=== PATIENT | male | born 1985 | race Caucasian/White ===

== ENCOUNTER 2017-10-11 18:26 | Emergency (ER) | payer OTHER ==
[~2017-10-11] VITALS: Ht 152.4 cm; Wt 57.2 kg
[~2017-10-11 18:26] MED LIST: A-CILLIN250 MG; AUGMENTIN 875875 MG PO; KEFLEX500 MG PO; LORATADINE; NKHM; PERCOCET 325 MG1 TA7 PO; VICODIN 5/500 505 MG PO
[2017-10-11] MEDS ORDERED: Motrin,Rufen800 MG PO (20:39)
[2017-10-11] MEDS ORDERED: CLINDAMYCIN HC300 MG PO (20:39)
== END 2017-10-11 20:48 | disposition home or self-care (01) ==
LOC: ED 18:26
DX: K02.9 Dental caries, unspecified (principal); F17.200 Nicotine dependence, unspecified, uncomplicated; Z98.890 Other specified postprocedural states

== ENCOUNTER 2021-01-28 19:42 | Emergency (ER) | payer SELFPAY ==
[~2021-01-28] VITALS: Ht 172.7 cm; Wt 59.0 kg
[~2021-01-28 19:42] MED LIST changes: +CLINDAMYCIN HC300 MG PO; +Motrin,Rufen800 MG PO
== END 2021-01-28 21:30 | disposition short-term general hospital (02) ==
LOC: ED 19:42
DX: S01.81XA Laceration without foreign body of other part of head, initial encounter (principal); W31.89XA Contact with other specified machinery, initial encounter; Y93.89 Activity, other specified; Y92.89 Other specified places as the place of occurrence of the external cause; Y99.8 Other external cause status